=== PATIENT | female | born 1970 | race Caucasian/White ===

== ENCOUNTER 2021-04-01 01:00 | Emergency (ER) | payer MEDICARE, OTHER ==
[2021-04-01] MEDS ORDERED: NORCO 5-325 TA1 EACH PO ×2 (02:51→02:53)
[2021-04-01] MEDS ORDERED: NAPROXEN500 MG PO ×2 (02:51→02:53)
== END 2021-04-01 11:55 | disposition home or self-care (01) ==
LOC: FER 01:00
DX: S52.501A Unspecified fracture of the lower end of right radius, initial encounter for closed fracture (principal); S10.91XA Abrasion of unspecified part of neck, initial encounter; F17.200 Nicotine dependence, unspecified, uncomplicated; Y04.2XXA Assault by strike against or bumped into by another person, initial encounter; Y92.009 Unspecified place in unspecified non-institutional (private) residence as the place of occurrence of the external cause
CPT/HCPCS: 70450; 72125; 73110